=== PATIENT | female | born 1960 | race Caucasian/White ===

== ENCOUNTER 2017-09-28 05:20 | Inpatient (IN) | payer BC ==
[~2017-09-28] VITALS: Ht 160 cm; Wt 99.3 kg
[~2017-09-28 05:20] MED LIST: AMOX875T PO; No meds per pt.
[2017-09-28] MEDS ORDERED: GABA300C10 PO (06:02)
[2017-09-28] MEDS ORDERED: LORA10TA75 PO (06:02)
[2017-09-28 06:03] VITALS: BP 146/84
[2017-09-28] MEDS: LACTATED RINGERS 1,000 ML IV SCH ×2 (06:30→20:53)
[2017-09-28] MEDS ORDERED: ONDANSETRON ODT 8 MG ONE (06:44)
[2017-09-28] MEDS ORDERED: FENTANYL PF 100 MCG/2ML ONE ×3 (06:46→08:07)
[2017-09-28] MEDS ORDERED: MIDAZOLAM 1 MG/ML, 2ML ONE (06:46)
[2017-09-28] MEDS ORDERED: VANCOMYCIN 1,000 MG ONE (06:48)
[2017-09-28] MEDS ORDERED: HYDROcodone/APAP 7.5-325MG/15ML UDC PO PRN (07:00)
[2017-09-28] MEDS ORDERED: ACETAMINOPHEN 325 MG TABLET PO PRN ×2 (07:00→10:00)
[2017-09-28] MEDS ORDERED: OXYcodone 5 MG/5 ML ORAL.SOL UDC PO PRN (07:00)
[2017-09-28] MEDS ORDERED: ONDANSETRON 2MG/ML, 2ML IVPush PRN (07:00)
[2017-09-28] MEDS ORDERED: MEPERIDINE/PF 25MG/0.5ML IVPush PRN (07:00)
[2017-09-28] MEDS ORDERED: PROMETHAZINE 25 MG/ML, 1ML IV PRN (07:00)
[2017-09-28] MEDS ORDERED: ONDANSETRON ODT 8 MG PO ONE (07:00)
[2017-09-28] MEDS ORDERED: BUPIVACAINE/PF 0.5% ONE (07:15)
[2017-09-28] MEDS ORDERED: LIDOCAINE-MPF 1%, 5ML ONE (07:15)
[2017-09-28] MEDS ORDERED: ALBUTEROL SULFATE 2.5MG/0.5ML ONE (07:48)
[2017-09-28] MEDS ORDERED: ALBUTEROL SULFATE 2.5 MG/3 ML NPPB ONE (08:00)
[2017-09-28] MEDS: FENTANYL PF 100 MCG/2ML IV PRN ×4 (08:00→08:15)
[2017-09-28] MEDS ORDERED: ACETAMINOPHEN 650 MG/20.3 ML UDC ONE (08:03)
[2017-09-28] MEDS ORDERED: OXYcodone 5 MG/5 ML ORAL.SOL UDC ONE (08:04)
[2017-09-28] MEDS: morphine SULFATE 10 MG/ML, 1ML IV PRN ×3 (08:25→08:50)
[2017-09-28] MEDS ORDERED: MORPHINE SULFATE 4 MG/ML, 1ML ONE ×2 (08:27→08:51)
[2017-09-28] MEDS ORDERED: ONDANSETRON 2MG/ML, 2ML IV PRN (10:00)
[2017-09-28] MEDS ORDERED: morphine SULFATE 10 MG/ML, 1ML IV PRN (10:00)
[2017-09-28] MEDS: KETOROLAC 30 MG/1 ML IV SCH ×2 (10:11→17:47)
[2017-09-28] MEDS ORDERED: CEFAZOLIN 1,000 MG ONE (10:37)
[2017-09-28] MEDS ORDERED: SUCCINYLCHOLINE 20 MG/ML, 10ML ONE (10:37)
[2017-09-28] MEDS ORDERED: PROPOFOL 10 MG/ML, 20ML ONE (10:37)
[2017-09-28] MEDS ORDERED: CEFAZOLIN PMX 1GM/50ML 50 ML IV SCH (11:00)
[2017-09-28 13:00] VITALS: BP 123/70
[2017-09-28] MEDS: OXYcodone/APAP 5/325MG TABLET PO PRN ×3 (13:38→22:00)
[2017-09-28] MEDS: DAPTOMYCIN 600 MG in SODIUM CHLORIDE 0.9% 100 ML IV SCH (15:26)
[2017-09-28] MEDS: MEROPENEM 1 GM in SODIUM CHLORIDE 0.9% 100 ML IV SCH (17:00)
[2017-09-28 20:54] VITALS: BP 120/76
[2017-09-29 00:20] VITALS: BP 107/65
[2017-09-29] MEDS: MEROPENEM 1 GM in SODIUM CHLORIDE 0.9% 100 ML IV SCH ×3 (01:03→17:00)
[2017-09-29] MEDS: OXYcodone/APAP 5/325MG TABLET PO PRN ×6 (01:54→22:46)
[2017-09-29] MEDS: KETOROLAC 30 MG/1 ML IV SCH (01:54)
[2017-09-29 04:00] VITALS: BP 120/70
[2017-09-29] MEDS: LACTATED RINGERS 1,000 ML IV SCH (09:23)
[2017-09-29 09:29] VITALS: BP 122/73
[2017-09-29 15:10] VITALS: BP 110/73
[2017-09-29] MEDS: DAPTOMYCIN 600 MG in SODIUM CHLORIDE 0.9% 100 ML IV SCH (15:37)
[2017-09-29 18:39] VITALS: BP 112/71
[2017-09-30 01:35] VITALS: BP 113/70
[2017-09-30] MEDS: OXYcodone/APAP 5/325MG TABLET PO PRN ×5 (02:47→21:29)
[2017-09-30 08:00] VITALS: BP 120/76
[2017-09-30] MEDS ORDERED: CEFTRIAXONE PMX 2GM/50ML 50 ML IV SCH (12:00)
[2017-09-30 12:51] VITALS: BP 120/72
[2017-09-30] MEDS ORDERED: CEFTRIAXONE 2 GM in DEXTROSE 5% 100 ML IV SCH (15:00)
[2017-09-30] MEDS: DAPTOMYCIN 600 MG in SODIUM CHLORIDE 0.9% 100 ML IV SCH (17:28)
[2017-09-30] MEDS: CEFTRIAXONE 2 GM in DEXTROSE 5% 50 ML IV SCH (21:29)
[2017-09-30 21:30] VITALS: BP 153/83
[2017-10-01 01:08] VITALS: BP 119/71
[2017-10-01] MEDS: OXYcodone/APAP 5/325MG TABLET PO PRN ×5 (03:59→22:28)
[2017-10-01 05:05] LABS: BASOPHILS # (AUTO) 0.04 x10^3/uL (0-0.1); BASOPHILS % (AUTO) 1 % (0-1); EOSINOPHILS # (AUTO) 0.42 x10^3/uL (0-0.4); EOSINOPHILS % (AUTO) 6 % (1-7); LYMPHOCYTES # (AUTO) 2.09 x10^3/uL (1-3.4); LYMPHOCYTES % (AUTO) 29 % (22-44); MD NO; MEAN CORPUSCULAR HEMOGLOBIN 30.1 pg (27.0-34.8); MEAN CORPUSCULAR HGB CONC 33.8 g/dL (32.4-35.8); MEAN CORPUSCULAR VOLUME 88.9 fL (80-100); MONOCYTES # (AUTO) 0.61 x10^3/uL (0.2-0.8); MONOCYTES % (AUTO) 9 % (2-9); NEUTROPHILS # (AUTO) 3.94 x10^3/uL (1.8-6.8); NEUTROPHILS % (AUTO) 56 % (42-75); PLATELET COUNT 313 x10^3/uL (130-400); RED BLOOD COUNT 4.14 x10^6/uL (3.82-5.3); RED CELL DISTRIBUTION WIDTH 14.4 % (9.6-15.2)
[2017-10-01 05:12] LABS: CHLORIDE 108 mmol/L (98-107)
[2017-10-01 05:26] LABS: ALANINE AMINOTRANSFERASE 16 U/L (12-78); ALBUMIN 2.7 g/dL (3.4-5.0); ALKALINE PHOSPHATASE 108 U/L (45-117); ANION GAP 7 mmol/L (5-15); BILIRUBIN,TOTAL 0.3 mg/dL (0.2-1.0); CALCIUM 8.1 mg/dL (8.5-10.1); CREATINE KINASE, TOTAL 68 U/L (26-192); CREATININE 0.75 mg/dL (0.55-1.02); TOTAL PROTEIN 6.9 g/dL (6.4-8.2)
[2017-10-01 06:11] LABS: HCT (SEDRATE) 36.8 % (34.6-47.8)
[2017-10-01 08:12] VITALS: BP 132/80
[2017-10-01] MEDS: ASPIRIN 325 MG TABLET EC PO SCH ×2 (10:26→22:21)
[2017-10-01] MEDS: DAPTOMYCIN 600 MG in SODIUM CHLORIDE 0.9% 100 ML IV SCH (13:22)
[2017-10-01 15:37] VITALS: BP 136/82
[2017-10-01] MEDS: CEFTRIAXONE 2 GM in DEXTROSE 5% 50 ML IV SCH (17:17)
[2017-10-01 19:15] VITALS: BP 130/81
[2017-10-02 02:56] VITALS: BP 121/76
[2017-10-02] MEDS: OXYcodone/APAP 5/325MG TABLET PO PRN ×3 (05:16→20:18)
[2017-10-02 06:38] VITALS: BP 119/73
[2017-10-02] MEDS: ASPIRIN 325 MG TABLET EC PO SCH ×2 (08:43→21:48)
[2017-10-02 13:10] VITALS: BP 171/98
[2017-10-02] MEDS: DAPTOMYCIN 600 MG in SODIUM CHLORIDE 0.9% 100 ML IV SCH (14:11)
[2017-10-02] MEDS: CEFTRIAXONE 2 GM in DEXTROSE 5% 50 ML IV SCH (14:58)
[2017-10-02 20:10] VITALS: BP 152/87
[2017-10-03 02:55] VITALS: BP 105/67
[2017-10-03 07:22] VITALS: BP 114/76
[2017-10-03] MEDS: ASPIRIN 325 MG TABLET EC PO SCH (08:43)
[2017-10-03] MEDS: DAPTOMYCIN 600 MG in SODIUM CHLORIDE 0.9% 100 ML IV SCH (12:25)
[2017-10-03] MEDS: CEFTRIAXONE 2 GM in DEXTROSE 5% 50 ML IV SCH (13:07)
[2017-10-03 14:16] VITALS: BP 131/77
== END 2017-10-03 14:46 | disposition home or self-care (01) | DRG 493 ==
LOC: OUT 05:20 → 4NOR 09:33 → OUT 10:13 → DCLOUNGE 10-03 14:37
PROVIDERS: ADMIT Orthopaedic Surgery; ATTEND Orthopaedic Surgery
PROC: 0QBH0ZZ Excision of Left Tibia, Open Approach (ICD-10-PCS; principal; 2017-09-28 07:00)
PROC: 02HV33Z Insertion of Infusion Device into Superior Vena Cava, Percutaneous Approach (ICD-10-PCS; 2017-10-01)
PROC: B548ZZA Ultrasonography of Superior Vena Cava, Guidance (ICD-10-PCS; 2017-10-01)
DX: M86.8X7 Other osteomyelitis, ankle and foot (principal); M48.56XA Collapsed vertebra, not elsewhere classified, lumbar region, initial encounter for fracture; L02.818 Cutaneous abscess of other sites; I10 Essential (primary) hypertension; B95.2 Enterococcus as the cause of diseases classified elsewhere; B95.61 Methicillin susceptible Staphylococcus aureus infection as the cause of diseases classified elsewhere; J45.909 Unspecified asthma, uncomplicated; Z85.3 Personal history of malignant neoplasm of breast; Z90.49 Acquired absence of other specified parts of digestive tract; Z90.710 Acquired absence of both cervix and uterus; Z90.722 Acquired absence of ovaries, bilateral; Z98.51 Tubal ligation status; Z87.81 Personal history of (healed) traumatic fracture; Z92.21 Personal history of antineoplastic chemotherapy; Z79.899 Other long term (current) drug therapy; Z88.8 Allergy status to other drugs, medicaments and biological substances; Z71.89 Other specified counseling
CPT/HCPCS: 36415; 36569; 76937; 77001; 80053; 82550; 85025; 85651; 86140; 87015; 87070; 87075; 87077; 87102; 87116; 87176; 87186; 87205; 87206; 87252; 94640; J0690; J0696; J0878; J1885; J2185; J2250; J2704; J3010; J3370; J3490; J7613; Q0162; C1751; J0330; J2270; J7120